=== PATIENT | female | born 1955 | race Caucasian/White ===

== ENCOUNTER 2019-07-07 15:59 | Day surgery (SDC) | payer OTHER ==
[2019-07-07] MEDS ORDERED: Marcaine 0.5% SDV 10 ML IJ ONE (16:00)
[2019-07-07] MEDS ORDERED: Depo-Medrol 40 MG/ML IM ONE (16:00)
[2019-07-07] MEDS ORDERED: Xylocaine 1% Vial 30 ML PF IJ ONE (16:00)
[2019-07-07] MEDS ORDERED: Lactated Ringers 1,000 ML IV ONE (18:24)
--- NOTE | 2019-07-07 19:37 | XRAY ---
Indication: Left SI joint injection. Intraoperative fluoroscopy was provided for 6 seconds. 2 digital spot images submitted for interpretation demonstrates posterior needle tip projecting over the inferior left SI joint. Correlate with intraoperative findings/report.
--- NOTE | 2019-07-08 13:33 | XRAY ---
6 seconds fluoroscopy time in surgery for left SI joint injection.
== END 2019-07-07 18:11 | disposition home or self-care (01) ==
LOC: SDC-PAIN 15:59
PROVIDERS: ATTEND Psychiatry & Neurology Pain Medicine
DX: M46.1 Sacroiliitis, not elsewhere classified (principal); I10 Essential (primary) hypertension; G47.30 Sleep apnea, unspecified; G20 Parkinson's disease; E11.9 Type 2 diabetes mellitus without complications; K21.9 Gastro-esophageal reflux disease without esophagitis; M79.7 Fibromyalgia; Z79.899 Other long term (current) drug therapy
CPT/HCPCS: 27096; 72020; 77002; 82962; J1030; J2001; G0260

== ENCOUNTER 2019-08-04 15:13 | Day surgery (SDC) | payer MEDICARE, OTHER ==
[2019-08-04] MEDS ORDERED: Xylocaine-Mpf 2% 5 Ml Vial IJ ONE (15:14)
[2019-08-04] MEDS ORDERED: Xylocaine 1% Vial 30 ML PF IJ ONE (15:14)
[2019-08-04] MEDS ORDERED: Depo-Medrol 40 MG/ML IM ONE (15:14)
--- NOTE | 2019-08-04 17:01 | XRAY ---
Indication: Bilateral L4-S1 MBB. Intraoperative fluoroscopy was provided for 22 seconds. Single digital spot image submitted for interpretation demonstrates posterior needle tips projecting over the expected course of the left and right L4-S1 nerve roots. Correlate with intraoperative findings/report.
--- NOTE | 2019-08-04 17:04 | XRAY ---
22 seconds fluoroscopy time in surgery for bilateral L4-S1 MBB.
== END 2019-08-04 16:30 | disposition home or self-care (01) ==
LOC: SDC-PAIN 15:13
PROVIDERS: ATTEND Psychiatry & Neurology Pain Medicine
DX: M47.816 Spondylosis without myelopathy or radiculopathy, lumbar region (principal); I10 Essential (primary) hypertension; E11.9 Type 2 diabetes mellitus without complications; G20 Parkinson's disease; G47.30 Sleep apnea, unspecified; K21.9 Gastro-esophageal reflux disease without esophagitis; Z79.899 Other long term (current) drug therapy
CPT/HCPCS: 64493; 64494; 72020; 77002; 82962; J1030; J2001

== ENCOUNTER 2019-09-08 13:53 | Day surgery (SDC) | payer MEDICARE, OTHER ==
[2019-09-08] MEDS ORDERED: Xylocaine 1% Vial 30 ML PF IJ ONE (13:54)
[2019-09-08] MEDS ORDERED: Depo-Medrol 40 MG/ML IM ONE (13:54)
[2019-09-08] MEDS ORDERED: Marcaine 0.5% SDV 10 ML IJ ONE (13:54)
--- NOTE | 2019-09-08 16:27 | XRAY ---
Indication: Bilateral L4-S1 MBB. Intraoperative fluoroscopy was provided for 21 seconds. Single digital spot image submitted for interpretation demonstrates posterior needle tips projecting over the expected course of the left and right L4-S1 nerve roots. Correlate with intraoperative findings/report.
--- NOTE | 2019-09-08 16:42 | XRAY ---
21 seconds fluoroscopy time in surgery for bilateral L4-S1 MBB.
== END 2019-09-08 15:42 | disposition home or self-care (01) ==
LOC: SDC-PAIN 13:53
PROVIDERS: ATTEND Psychiatry & Neurology Pain Medicine
DX: M47.816 Spondylosis without myelopathy or radiculopathy, lumbar region (principal); I10 Essential (primary) hypertension; E11.9 Type 2 diabetes mellitus without complications; G47.30 Sleep apnea, unspecified; G20 Parkinson's disease; M79.7 Fibromyalgia; F41.8 Other specified anxiety disorders; K21.9 Gastro-esophageal reflux disease without esophagitis; R51 Headache; Z79.899 Other long term (current) drug therapy
CPT/HCPCS: 64493; 64494; 72020; 77002; 82962; J1030; J2001

== ENCOUNTER 2019-10-06 15:44 | Day surgery (SDC) | payer MEDICARE, OTHER ==
[~2019-10-06 15:44] MED LIST: Lactated Ringers 1,000 ML IV ONE
[2019-10-06] MEDS ORDERED: Marcaine 0.5% SDV 10 ML IJ ONE (15:45)
[2019-10-06] MEDS ORDERED: Depo-Medrol 40 MG/ML IM ONE (15:45)
[2019-10-06] MEDS ORDERED: Xylocaine 1% Vial 30 ML PF IJ ONE (15:45)
--- NOTE | 2019-10-06 16:47 | XRAY ---
Indication: Left L4-S1 RFA. Intraoperative fluoroscopy was provided for 20 seconds. 4 digital spot images submitted for interpretation demonstrates posterior needle tips projecting over the expected course of the left L4-S1 nerve roots. Correlate with intraoperative findings/report.
--- NOTE | 2019-10-06 16:53 | XRAY ---
20 seconds fluoroscopy time in surgery for left L4-S1 RFA.
== END 2019-10-06 16:20 | disposition home or self-care (01) ==
LOC: SDC-PAIN 15:44
PROVIDERS: ATTEND Psychiatry & Neurology Pain Medicine
DX: M47.816 Spondylosis without myelopathy or radiculopathy, lumbar region (principal); M47.817 Spondylosis without myelopathy or radiculopathy, lumbosacral region; E11.9 Type 2 diabetes mellitus without complications; I10 Essential (primary) hypertension; G47.30 Sleep apnea, unspecified; K21.9 Gastro-esophageal reflux disease without esophagitis; G20 Parkinson's disease; M79.7 Fibromyalgia; Z85.3 Personal history of malignant neoplasm of breast; Z79.899 Other long term (current) drug therapy
CPT/HCPCS: 62323; 72100; 77002; 82962; J1030; J2001

== ENCOUNTER 2019-10-13 11:27 | Day surgery (SDC) | payer MEDICARE, OTHER ==
[2019-10-13] MEDS ORDERED: Xylocaine 1% Vial 30 ML PF IJ ONE (11:28)
[2019-10-13] MEDS ORDERED: Depo-Medrol 40 MG/ML IM ONE (11:28)
[2019-10-13] MEDS ORDERED: Marcaine 0.5% SDV 10 ML IM ONE (11:28)
[2019-10-13] MEDS ORDERED: Lactated Ringers 1,000 ML IV ONE (14:04)
--- NOTE | 2019-10-13 14:17 | XRAY ---
Indication: Right L4-S1 RFA. Intraoperative fluoroscopy was provided for 27 seconds. 3 digital spot images submitted for interpretation demonstrates posterior needle tips projecting over the expected course of the right L4-S1 nerve roots. Correlate with intraoperative findings/report.
--- NOTE | 2019-10-13 16:43 | XRAY ---
27 seconds fluoroscopy time in surgery for right L4-S1 RFA.
== END 2019-10-13 12:43 | disposition home or self-care (01) ==
LOC: SDC-PAIN 11:27
PROVIDERS: ATTEND Psychiatry & Neurology Pain Medicine
DX: M47.816 Spondylosis without myelopathy or radiculopathy, lumbar region (principal); M47.817 Spondylosis without myelopathy or radiculopathy, lumbosacral region; I10 Essential (primary) hypertension; G47.30 Sleep apnea, unspecified; G20 Parkinson's disease; E11.9 Type 2 diabetes mellitus without complications; Z85.3 Personal history of malignant neoplasm of breast
CPT/HCPCS: 64635; 64636; 72100; 77002; 82962; J1030; J2001